=== PATIENT | male | born 1990 | race Caucasian/White ===

== ENCOUNTER 2017-07-27 08:44 | Emergency (ER) | payer OTHER ==
[~2017-07-27] VITALS: Ht 180.3 cm; Wt 70.3 kg
[2017-07-27 09:36] LABS: BASOPHILS # (AUTO) 0.1 K/uL (0.0-8.0); BASOPHILS % (AUTO) 0.6 % (0.0-2.0); EOSINOPHILS # (AUTO) 0.1 K/uL (0.0-0.7); EOSINOPHILS % (AUTO) 1.3 % (0.0-7.0); HEMATOCRIT 46.9 % (36.7-47.1); HEMOGLOBIN 16.4 g/dL (12.5-16.3); LYMPHOCYTES # (AUTO) 1.2 K/uL (20.0-40.0); LYMPHOCYTES % (AUTO) 11.3 % (20.5-51.5); MEAN CORPUSCULAR HEMOGLOBIN 31.1 uug (23.8-33.4); MEAN CORPUSCULAR HGB CONC 35 g/dL (32.5-36.3); MEAN CORPUSCULAR VOLUME 89.2 fL (73.0-96.2); MONOCYTES # (AUTO) 1.5 K/uL (2.0-10.0); MONOCYTES % (AUTO) 14.6 % (0.0-11.0); NEUTROPHILS # (AUTO) 7.5 K/uL (1.8-8.9); NEUTROPHILS % (AUTO) 72.2 % (38.5-71.5); PLATELET COUNT (AUTO) 285 K/uL (152-348); RED BLOOD CELL COUNT(AUTO) 5.26 MIL/uL (4.06-5.63); WHITE BLOOD COUNT (AUTO) 10.4 K/uL (3.6-10.2)
[2017-07-27 09:45] LABS: POTASSIUM 4.4 mmol/L (3.5-5.1)
[2017-07-27 09:54] LABS: BILIRUBIN,DIRECT 0.2 mg/dL (0.0-0.2); BILIRUBIN,TOTAL 0.8 mg/dL (0.2-1.0); TOTAL PROTEIN, SERUM 8.5 g/dL (6.4-8.2)
--- NOTE | 2017-07-27 10:01 | NUR ---
Patient is resting comfortably on gurney, NAD, no coughing heard since arrival to our ER dept, resppiration:easy, pending results & disposition.
--- NOTE | 2017-07-27 10:19 | NUR ---
Patient refused po meds, MD was made aware. Patient wants to be admitted.
--- NOTE | 2017-07-27 10:26 | NUR ---
Patient discharged in stable conditon. Written and verbal after care instructions given to patient. Patient verbalizes understanding of instructions but patient wants to be admitted to our hospital, MD notified. Patient left ER with brisk steady gait.
[2017-07-27] MEDS ORDERED: AZITHROMYCIN 250 MG TABLET PO ONE (10:30)
[2017-07-27] MEDS ORDERED: predniSONE 20 MG TABLET PO ONE (10:30)
== END 2017-07-27 10:28 | disposition home or self-care (01) ==
LOC: ER 08:44
DX: R07.89 Other chest pain (principal); J18.9 Pneumonia, unspecified organism
CPT/HCPCS: 36415; 70030-TC; 71010; 83605; 85025; 85730; 87040; 87400; 93005; A4663